=== PATIENT | male | born 2000 | race Caucasian/White ===

== ENCOUNTER 2020-01-18 10:40 | Emergency (ER) | payer OTHER, SELFPAY ==
--- NOTE | 2020-01-18 10:49 | ED.GENADULT ---
HPI - General Adult General Chief complaint: Extremity Injury, Lower Stated complaint: Foot Pain Time Seen by Provider: 01/18/20 10:49 Source: patient Mode of arrival: ambulatory Limitations: no limitations History of Present Illness HPI narrative: 19-year-old male patient presents to the [facility] with complaints of right foot pain. Patient admits that he has been homeless for a while and has been doing a lot of walking. Patient does have some boots that he has been walking in and states that he has not been able to bathe recently. Patient states he has right foot pain since Saturday. Patient states it hurts worse when he is in his shoes and walking. Does feel better when he is not walking. Patient states most of the pain is on the lateral side of the right foot. Patient states he did take couple of Tylenol for the pain the other day and that his mother did give him some liquid hydrocodone for the pain today. Patient denies any injury to the foot that he is aware of. Related Data Home Medications Medication Instructions Recorded Confirmed No Home Medications 01/18/20 01/18/20 Allergies Allergy/AdvReac Type Severity Reaction Status Date / Time No Known Allergies Allergy Verified 01/18/20 10:49 Review of Systems Review of Systems: Narrative: CONSTITUTIONAL: Denies fever, chills, or sweats. EYES: Denies visual changes, redness, or discharge. ENT: Denies rhinorrhea, congestion, sore throat, or otalgia. CARDIOVASCULAR: Denies chest pain, palpitations, or edema. RESPIRATORY: Denies cough or dyspnea. GASTROINTESTINAL: Denies abdominal pain, nausea, vomiting, or diarrhea. GENITOURINARY: Denies dysuria or hematuria. SKIN: Denies rash or itching. MUSCULOSKELETAL: Denies back pain, joint pain, or myalgia. Positive right foot pain NEUROLOGIC: Denies headache, numbness, or weakness. PSYCHIATRIC: Denies anxiety or depression. [facility] Past Medical History Medical History (Updated 01/18/20 @ 11:17 by ANDRES Billy) No significant past medical history Social History Social History (Updated 01/18/20 @ 11:17 by ANDRES Billy) Smoking status: Current every day smoker Gender identity (if verbalized by the patient): Male Comments At the time of my signature I agree with nursing past medical history, surgical, social, and family history. There is no relevant family history pertinent to the presenting complaint. Exam Narrative: Exam Narrative: GENERAL: Well-appearing, well-nourished, and in no acute distress. HEAD: Normocephalic, atraumatic. EYES: PERRLA and EOMI. ENT: Nares clear, no rhinorrhea or epistaxis. Mucous membranes moist. NECK: Supple. No lymphadenopathy CHEST: Clear to auscultation. No respiratory distress. HEART: Regular rate and rhythm. No murmur heard. Normal peripheral pulses. ABDOMEN: Soft, nontender, nondistended, normal active bowel sounds. EXTREMITIES: Patient able to bear weight and ambulate but complains of pain to the right foot on the lateral side. patient does have an obvious callus with some erythema and tenderness noted over the area on the lateral side of the foot. Patient does have an abnormal prominence to the side however it is the same on the left foot as well. No open wound or drainage noted. No warmth noted to the touch. The R foot is without obvious asymmetry or deformity when compared to the L foot. No bony step-off, nontender to palpation over the toes, midfoot or hindfoot or sole. Normal plantar/dorsiflexion, inversion/eversion. Distal motor and neurovascular status are intact SKIN: Warm, dry, no rash. NEURO: No focal deficits. Alert and oriented x3. Course Vital Signs Vital signs: Vital Signs Temperature 36.6 C 01/18/20 10:54 Pulse Rate 94 01/18/20 10:54 Respiratory Rate 18 01/18/20 10:54 Blood Pressure 125/81 01/18/20 10:54 Pulse Oximetry 98 01/18/20 10:54 Temperature 36.6 C 01/18/20 10:54 Pulse Rate 94 01/18/20 10:54 Respiratory Rat
[2020-01-18 10:54] VITALS: BP 125/81; PULSE 94; RESP 18; TEMP 36.6; O2SAT 98
== END 2020-01-18 11:21 | disposition home or self-care (01) ==
PROVIDERS: Emergency Provider Nurse Practitioner Family
DX: L84 Corns and callosities (principal); S90.821A Blister (nonthermal), right foot, initial encounter; X58.XXXA Exposure to other specified factors, initial encounter; F17.200 Nicotine dependence, unspecified, uncomplicated
CPT/HCPCS: 99212; G0463

== ENCOUNTER 2021-06-12 17:03 | Emergency (ER) | payer OTHER, SELFPAY ==
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
[2021-06-12 18:17] VITALS: BP 137/86; PULSE 107; RESP 18; TEMP 36.5; O2SAT 100
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
[2021-06-12 20:33] VITALS: BP 126/74; PULSE 87; RESP 18; TEMP 36.7; O2SAT 98
== END 2021-06-12 20:33 | disposition home or self-care (01) ==
PROVIDERS: Emergency Provider Nurse Practitioner Family
DX: S09.90XA Unspecified injury of head, initial encounter (principal); S19.9XXA Unspecified injury of neck, initial encounter; F17.210 Nicotine dependence, cigarettes, uncomplicated; Y04.8XXA Assault by other bodily force, initial encounter
CPT/HCPCS: 70450; 70486; 72125; 99284